=== PATIENT | male | born 1995 | race African-American/Black ===

== ENCOUNTER 2022-04-21 05:21 | Emergency (ER) | payer SELFPAY ==
[2022-04-21] MEDS: Tetracaine HCl/PF 0.5% 4 ML Bottle EYEBOTH ONE ×2 (06:15→06:18)
== END 2022-04-21 07:07 | disposition home or self-care (01) ==
LOC: MW.ED 05:21
DX: S00.211A Abrasion of right eyelid and periocular area, initial encounter (principal); Y04.0XXA Assault by unarmed brawl or fight, initial encounter
CPT/HCPCS: 70450; 70450-26; 70486; 70486-26; 99283; 99284; J3490